=== PATIENT | female | born 1970 | race Caucasian/White ===

== ENCOUNTER 2017-05-10 06:47 | Emergency (ER) | payer MEDICAID ==
[~2017-05-10] VITALS: Ht 152.4 cm; Wt 85.1 kg
[2017-05-10 06:48] VITALS: BP 139/83
[2017-05-10] MEDS ORDERED: ONDANSETRON ODT 4 MG ONE (08:21)
[2017-05-10] MEDS ORDERED: KETOROLAC 30 MG/1 ML ONE (08:21)
[2017-05-10] MEDS ORDERED: ONDANSETRON ODT 4 MG PO ONE (08:30)
[2017-05-10] MEDS ORDERED: KETOROLAC 30 MG/1 ML IM ONE (08:30)
[2017-05-10] MEDS ORDERED: PROMETHAZINE 25 MG/ML, 1ML ONE (08:49)
[2017-05-10] MEDS ORDERED: PROMETHAZINE 25 MG/ML, 1ML IM ONE (09:00)
[2017-05-10 09:01] LABS: BLOOD UREA NITROGEN 8 mg/dL (7-18)
[2017-05-10 09:21] LABS: PATH.CAST-FLAG NOT PRESENT; SPERM-FLAG NOT PRESENT; SRC-FLAG NOT PRESENT; XTAL-FLAG NOT PRESENT; YLC-FLAG NOT PRESENT
[2017-05-10 09:23] LABS: HCG UR OBC PASS
== END 2017-05-10 10:07 | disposition home or self-care (01) ==
LOC: ED 09:40
DX: B34.9 Viral infection, unspecified (principal); M79.1 Myalgia; R11.2 Nausea with vomiting, unspecified
CPT/HCPCS: 36415; 80048; 81001; 81025; 82040; 85025; 87086; 96372; 99284; J1885; J2550; Q0162

== ENCOUNTER 2017-07-14 13:51 | Emergency (ER) | payer MEDICAID, OTHER ==
[~2017-07-14] VITALS: Ht 165.1 cm; Wt 84.7 kg
[2017-07-14 13:56] VITALS: BP 131/92
== END 2017-07-14 15:06 | disposition home or self-care (01) ==
LOC: ED 14:53
DX: J01.00 Acute maxillary sinusitis, unspecified (principal); H92.01 Otalgia, right ear
CPT/HCPCS: 99283

== ENCOUNTER 2017-07-17 15:57 | Emergency (ER) | payer MEDICAID ==
[~2017-07-17] VITALS: Ht 152.4 cm; Wt 84.5 kg
[2017-07-17] MEDS ORDERED: AMLO10TA2 PO (16:34)
[2017-07-17] MEDS ORDERED: LORA-702 PO (16:34)
[2017-07-17] MEDS ORDERED: KETOROLAC 30 MG/1 ML ONE (16:45)
[2017-07-17] MEDS ORDERED: DIAZEPAM 5 MG TABLET ONE (16:45)
[2017-07-17] MEDS ORDERED: KETOROLAC 30 MG/1 ML IM ONE (17:00)
[2017-07-17] MEDS ORDERED: DIAZEPAM 5 MG TABLET PO ONE (17:00)
[2017-07-17 17:54] VITALS: BP 126/70
== END 2017-07-17 18:32 | disposition home or self-care (01) ==
LOC: ED 17:15
DX: G44.219 Episodic tension-type headache, not intractable (principal); J32.1 Chronic frontal sinusitis; J32.0 Chronic maxillary sinusitis
CPT/HCPCS: 81003; 96372; 99283; J1885

== ENCOUNTER 2017-08-02 07:55 | Emergency (ER) | payer MEDICAID ==
[~2017-08-02] VITALS: Ht 152.4 cm; Wt 88.0 kg
[~2017-08-02 07:55] MED LIST: AMLO10TA2 PO; LORA-702 PO
[2017-08-02 07:56] VITALS: BP 127/81
== END 2017-08-02 09:52 | disposition home or self-care (01) ==
LOC: ED 08:22
DX: J01.00 Acute maxillary sinusitis, unspecified (principal); J01.20 Acute ethmoidal sinusitis, unspecified
CPT/HCPCS: 99283

== ENCOUNTER 2017-08-10 12:25 | Emergency (ER) | payer MEDICAID ==
[~2017-08-10] VITALS: Ht 152.4 cm; Wt 84.6 kg
[2017-08-10 12:30] VITALS: BP 127/92
== END 2017-08-10 14:18 | disposition home or self-care (01) ==
LOC: ED 13:46
DX: S50.12XA Contusion of left forearm, initial encounter (principal); S60.022A Contusion of left index finger without damage to nail, initial encounter; W19.XXXA Unspecified fall, initial encounter; Y93.89 Activity, other specified; Y99.8 Other external cause status; Y92.009 Unspecified place in unspecified non-institutional (private) residence as the place of occurrence of the external cause
CPT/HCPCS: 99284

== ENCOUNTER 2018-04-19 18:47 | Emergency (ER) | payer MEDICAID, OTHER ==
[~2018-04-19] VITALS: Ht 154.9 cm; Wt 86.0 kg
[2018-04-19 18:50] VITALS: BP 137/96
== END 2018-04-19 19:38 | disposition home or self-care (01) ==
LOC: ED 19:32
DX: F10.220 Alcohol dependence with intoxication, uncomplicated (principal); M25.571 Pain in right ankle and joints of right foot
CPT/HCPCS: 99284